=== PATIENT | female | born 1975 | race Caucasian/White ===

== ENCOUNTER 2021-06-05 12:06 | Inpatient (IN) | payer MEDICAID, OTHER ==
[~2021-06-05] VITALS: Ht 170.2 cm; Wt 91.8 kg
[~2021-06-05 12:06] MED LIST: DIVA-80 PO; FLUO-191 PO; HYDR25TA2 PO; MVITFE PO; POTA10CA44 PO; RISP0.5T5 PO; RISP2TAB45 PO
[2021-06-05] MEDS ORDERED: HALOPERIDOL LACTATE 5 MG/ML VIAL ONE (12:51)
[2021-06-05] MEDS ORDERED: DiphenhydrAMINE HCL 50 MG/ML VIAL ONE (12:51)
[2021-06-05] MEDS ORDERED: LORazepam 2 MG/ML VIAL ONE (12:51)
[2021-06-05] MEDS ORDERED: DiphenhydrAMINE HCL 50 MG/ML VIAL IM ONE (13:00)
[2021-06-05] MEDS ORDERED: HALOPERIDOL LACTATE 5 MG/ML VIAL IM ONE (13:00)
[2021-06-05] MEDS ORDERED: LORazepam 2 MG/ML VIAL IM ONE (13:00)
[2021-06-05 14:56] LABS: BASOPHILS % (AUTO) 0.7 % (0.0-2.0); EOSINOPHILS % (AUTO) 1.2 % (1.0-6.0); HEMATOCRIT 39.9 % (36-46); HEMOGLOBIN 13.2 g/dL (12.0-16.0); LYMPHOCYTES # (AUTO) 2.6 K/uL (1.0-4.8); LYMPHOCYTES % (AUTO) 24.1 % (22.0-44.0); MEAN CORPUSCULAR HEMOGLOBIN 28.6 pg (26.0-34.0); MEAN CORPUSCULAR VOLUME 87 fL (80-100); MONOCYTES # (AUTO) 0.7 K/uL (0.1-1.0); MONOCYTES % (AUTO) 6.8 % (2.0-9.0); NEUTROPHILS # (AUTO) 7.2 K/uL (1.8-7.7); NEUTROPHILS % (AUTO) 67.2 % (40.0-70.0); PLATELET COUNT (AUTO) 335 K/uL (150-450); RED CELL DISTRIBUTION WIDTH 14.5 % (11.5-14.5)
[2021-06-05 15:05] LABS: ANION GAP 10 mmol/L (8-16); CALCIUM, TOTAL 8.9 mg/dL (8.8-10.5); CARBON DIOXIDE 26 mmol/L (22-29); CHLORIDE 104 mmol/L (98-107); CREATININE 0.56 mg/dL (0.60-1.30); GLUCOSE,RANDOM 103 mg/dL (70-110); POTASSIUM 3.7 mmol/L (3.5-5.1); SODIUM SERUM 140 mmol/L (136-145); UREA NITROGEN, BLOOD 4 mg/dL (7-18)
[2021-06-05 15:06] LABS: GLOMERULAR FILTR. RATE CALC > 60 mL/min (>60)
[2021-06-05 15:11] LABS: ALANINE AMINOTRANSFERASE 36 U/L (12-78); ALBUMIN 3.6 g/dL (3.4-5.0); ALKALINE PHOSPHATASE 80 U/L (46-116); ASPARTATE AMINOTRANSFERASE 41 U/L (15-37); BILIRUBIN,TOTAL 0.3 mg/dL (0.1-1.0); TOTAL PROTEIN, SERUM 7.4 g/dL (6.4-8.2)
[2021-06-05 16:58] LABS: COVID AG,FIA SOURCE NASAL SWAB
[2021-06-05] MEDS ORDERED: HydrOXYzine PAMOATE 50 MG CAPSULE PO PRN (19:15)
[2021-06-05] MEDS ORDERED: LOPERAMIDE HCL 2 MG CAPSULE PO PRN (19:15)
[2021-06-05] MEDS ORDERED: ACETAMINOPHEN 325 MG TABLET PO PRN (19:15)
[2021-06-05] MEDS ORDERED: MAG HYDROX/AL HYDROX/SIMETH ES 30 ML SUSPENSION UDCUP PO PRN (19:15)
[2021-06-05] MEDS ORDERED: PROMETHAZINE HCL 25 MG TABLET PO PRN (19:15)
[2021-06-05] MEDS ORDERED: TUBERCULIN, PURIFIED PROTEIN DERIVATIVE 5 TU/0.1 ML SYRINGE ID ONE (19:15)
[2021-06-05] MEDS ORDERED: OLANZapine 5 MG RAPDIS TABLET PO PRN ×2 (19:15)
[2021-06-05] MEDS ORDERED: MAGNESIUM HYDROXIDE SUSPENSION 30 ML UDCUP PO PRN (19:15)
[2021-06-05] MEDS ORDERED: GuaiFENesin/D-METHORPHAN [SUGAR-FREE] 200-20MG/10 ML SYRUP UDCUP PO PRN (19:15)
[2021-06-05] MEDS ORDERED: INFLUENZA VIRUS VACCINE QVS 2021-22 (6MO+)/PF 60 MCG/0.5 ML SYRINGE IM. ONE (20:15)
[2021-06-05] MEDS: MELATONIN 5 MG TABLET PO SCH (21:09)
[2021-06-06 02:11] LABS: GLUCOMETER DEV NAME(LOC) BV3N.; GLUCOSE,POINT OF CARE 111 MG/DL (70-110)
[2021-06-06 06:53] VITALS: BP 116/57
[2021-06-06 07:30] LABS: HEMOGLOBIN A1C 5.9 % (3.8-5.6)
[2021-06-06 07:39] LABS: CHOL/HDL RATIO 2.3 (3.9-5.7); FREE T4 (FREE THYROXINE) 1.47 ng/dL (0.76-1.46); THYROID STIMULATING HORMONE 0.62 uIU/mL (0.36-3.74)
[2021-06-06 08:15] VITALS: BP 120/86
[2021-06-06] MEDS: FOLIC ACID 1 MG TABLET PO SCH (08:33)
[2021-06-06] MEDS: OMEGA-3/DHA/EPA/FISH OIL 1,000 MG CAPSULE PO SCH (08:33)
[2021-06-06] MEDS: THIAMINE 100 MG TABLET PO SCH ×2 (08:33→16:03)
[2021-06-06] MEDS: MULTIVITAMINS WITH MINERALS, THERAPEUTIC TABLET PO SCH (08:33)
[2021-06-06] MEDS: OLANZapine 5 MG RAPDIS TABLET PO SCH ×2 (08:40→13:00)
[2021-06-06] MEDS: NALTREXONE HCL 50 MG TABLET PO SCH (08:40)
[2021-06-06] MEDS ORDERED: HALOPERIDOL 5 MG TABLET PO PRN (14:00)
[2021-06-06] MEDS: LORazepam 2 MG TABLET PO PRN ×2 (14:27→23:10)
[2021-06-06 14:52] LABS: RAPID PLASMA REAGIN NONREACTIVE (NONREACTIVE)
[2021-06-06] MEDS: HALOPERIDOL 5 MG TABLET PO SCH (16:03)
[2021-06-06] MEDS: BusPIRone HCL 5 MG TABLET PO SCH (16:03)
[2021-06-06 16:59] VITALS: BP 113/66
[2021-06-06] MEDS: ZOLPIDEM TARTRATE 10 MG TABLET PO PRN (20:00)
[2021-06-06] MEDS: MELATONIN 5 MG TABLET PO SCH (20:00)
[2021-06-07 01:12] VITALS: BP 110/64
[2021-06-07] MEDS: LORazepam 2 MG TABLET PO PRN ×3 (03:43→19:13)
[2021-06-07 08:21] VITALS: BP 122/68
[2021-06-07] MEDS: OMEGA-3/DHA/EPA/FISH OIL 1,000 MG CAPSULE PO SCH (08:26)
[2021-06-07] MEDS: HALOPERIDOL 5 MG TABLET PO SCH ×2 (08:26→16:06)
[2021-06-07] MEDS: FOLIC ACID 1 MG TABLET PO SCH (08:27)
[2021-06-07] MEDS: BusPIRone HCL 5 MG TABLET PO SCH ×2 (08:27→16:06)
[2021-06-07] MEDS: THIAMINE 100 MG TABLET PO SCH ×2 (08:27→16:06)
[2021-06-07] MEDS: MULTIVITAMINS WITH MINERALS, THERAPEUTIC TABLET PO SCH (08:27)
[2021-06-07] MEDS: NALTREXONE HCL 50 MG TABLET PO SCH (08:27)
[2021-06-07 16:25] VITALS: BP 119/79
[2021-06-07] MEDS: MELATONIN 5 MG TABLET PO SCH (20:17)
[2021-06-07] MEDS: ZOLPIDEM TARTRATE 10 MG TABLET PO PRN (22:43)
[2021-06-08 01:27] VITALS: BP 119/72
[2021-06-08] MEDS: LORazepam 2 MG TABLET PO PRN (04:58)
[2021-06-08] MEDS: MULTIVITAMINS WITH MINERALS, THERAPEUTIC TABLET PO SCH (08:14)
[2021-06-08] MEDS: THIAMINE 100 MG TABLET PO SCH (08:15)
[2021-06-08] MEDS: OMEGA-3/DHA/EPA/FISH OIL 1,000 MG CAPSULE PO SCH (08:15)
[2021-06-08] MEDS: HALOPERIDOL 5 MG TABLET PO SCH (08:15)
[2021-06-08] MEDS: FOLIC ACID 1 MG TABLET PO SCH (08:15)
[2021-06-08] MEDS: BusPIRone HCL 5 MG TABLET PO SCH (08:16)
[2021-06-08] MEDS: NALTREXONE HCL 50 MG TABLET PO SCH (08:16)
[2021-06-08 08:57] VITALS: BP 122/79
[2021-06-08] MEDS ORDERED: MODAFINIL 100 MG TABLET PO SCH ×2 (09:00)
[2021-06-08] MEDS ORDERED: BUSP5TAB20 PO (11:58)
[2021-06-08] MEDS ORDERED: HALO5TAB2 PO (11:58)
[2021-06-08] MEDS ORDERED: MELA5TAB40 PO (11:58)
[2021-06-08] MEDS ORDERED: OMEG-108 PO (11:58)
[2021-06-08] MEDS ORDERED: MODA100T65 PO (11:58)
[2021-06-08] MEDS ORDERED: NALT50TA PO (11:58)
== END 2021-06-08 12:23 | disposition home or self-care (01) | DRG 750 ==
LOC: EMS 12:08 → B3A 16:57
PROVIDERS: ADMIT Psychiatry & Neurology Psychiatry; ATTEND Psychiatry & Neurology Psychiatry
DX: F20.0 Paranoid schizophrenia (principal); E87.6 Hypokalemia; F12.90 Cannabis use, unspecified, uncomplicated; F17.210 Nicotine dependence, cigarettes, uncomplicated; I10 Essential (primary) hypertension; F90.9 Attention-deficit hyperactivity disorder, unspecified type; F19.10 Other psychoactive substance abuse, uncomplicated; J44.9 Chronic obstructive pulmonary disease, unspecified; Z20.822 Contact with and (suspected) exposure to COVID-19; Z98.891 History of uterine scar from previous surgery; Z55.9 Problems related to education and literacy, unspecified; Z59.9 Problem related to housing and economic circumstances, unspecified; Z91.14 Patient's other noncompliance with medication regimen; Z63.9 Problem related to primary support group, unspecified; Z65.3 Problems related to other legal circumstances; Z88.1 Allergy status to other antibiotic agents
CPT/HCPCS: 80053; 80061; 82962; 83036; 84439; 84443; 84703; 85025; 86592; 99285; G0480; J1200; J1630; J2060; Q9967